=== PATIENT | female | born 1965 | race Caucasian/White ===

== ENCOUNTER 2017-02-21 10:47 | Emergency (ER) | payer BC ==
--- NOTE | 2017-02-21 11:00 | EDM.PDOC ---
ED HPI GENERAL MEDICAL PROBLEM - General Chief Complaint: Neuro Symptoms/Deficits Stated Complaint: AMBULANCE Time Seen by Provider: 02/21/17 10:58 - History of Present Illness INITIAL COMMENTS - FREE TEXT/NARRATIVE: HISTORY AND PHYSICAL: History of present illness: Patient is 51-year-old female history of fibromyalgia presents with concern of right-sided paresthesia and weakness this occurred prior to arrival at approximately 10:30 AM while she was showering she denies chest pain shortness of breath headache fever chills trauma or any other complaints Review of systems: As per history of present illness and below otherwise all systems reviewed and negative. Past medical history: As per history of present illness and as reviewed below otherwise noncontributory. Surgical history: As per history of present illness and as reviewed below otherwise noncontributory. Social history: No reported history of drug or alcohol abuse. Family history: As per history of present illness and as reviewed below otherwise noncontributory. Physical exam: HEENT: Atraumatic, normocephalic, pupils reactive, negative for conjunctival pallor or scleral icterus, mucous membranes moist, throat clear, neck supple, nontender, trachea midline. Lungs: Clear to auscultation, breath sounds equal bilaterally, chest nontender. Heart: S1S2, regular, negative for clicks, rubs, or JVD. Abdomen: Soft, nondistended, nontender. Negative for masses or hepatosplenomegaly. Negative for costovertebral tenderness. Pelvis: Stable nontender. Genitourinary: Deferred. Rectal: Deferred. Extremities: Atraumatic, negative for cords or calf pain. Neurovascular unremarkable. Neuro: Awake, alert, oriented. Cranial nerves II through XII unremarkable. Cerebellum unremarkable. Motor and sensory limited with equivocal mild weakness right sided motor 4 out of 5 no discernible paresthesia Diagnostics: Stroke protocol Therapeutics: Stroke protocol Impression: #1 right-sided paresthesia/paresis #2 history of fibromyalgia Definitive disposition and diagnosis as appropriate pending reevaluation and review of above. - Related Data Allergies Allergy/AdvReac Type Severity Reaction Status Date / Time No Known Allergies Allergy Verified 08/08/14 12:19 Home Meds: Home Meds L.acidoph,Paracasei, B.lactis [Probiotic] 1 each PO DAILY 08/08/14 [History] Wheat Dextrin [Benefiber] 1 tsp PO DAILY 08/08/14 [History] atorvaSTATin Calcium [Atorvastatin Calcium] 1 tab PO DAILY 08/08/14 [History] Social & Family History - Tobacco Use Smoking Status *Q: Never Smoker - Alcohol Use Days Per Week of Alcohol Use: 1 Number of Drinks Per Day: 0 Total Drinks Per Week: 0 - Recreational Drug Use Recreational Drug Use: No Drug Use in Last 12 Months: No ED ROS GENERAL - Review of Systems Review Of Systems: ROS reveals no pertinent complaints other than HPI. ED EXAM, GENERAL - Physical Exam Exam: See Below (See dictation) Course - Orders/Labs/Meds Orders: Active Orders 24 hr Category Date Time Status Cardiac Monitoring [RC] . DIRECTED Care 02/21/17 11:00 Active EKG Documentation Completion [RC] STAT Care 02/21/17 11:00 Active Oxygen Therapy, ED [RC] ASDIRECTED Care 02/21/17 11:00 Active Pulse Oximetry [RC] ASDIRECTED Care 02/21/17 11:00 Active Chest 1V Frontal [CR] Stat Exams 02/21/17 11:01 Ordered Head wo Cont [CT] Stat Exams 02/21/17 11:01 Taken COMPREHENSIVE METABOLIC PN,CMP [CHEM] Stat Lab 02/21/17 11:13 Received DRUG SCREEN, URINE [URCHEM] Stat Lab 02/21/17 11:01 Uncollected ETHANOL BLOOD MEDICAL [CHEM] Stat Lab 02/21/17 11:13 Received HCG QUALITATIVE,SERUM [CHEM] Stat Lab 02/21/17 11:13 Received INR,PT,PROTHROMBIN TIME [COAG] Stat Lab 02/21/17 11:13 Received PROLACTIN [CHEM] Stat Lab 02/21/17 11:13 Received TROPONIN I [CHEM] Stat Lab 02/21/17 11:13 Received UA W/MICROSCOPIC [URIN] Stat Lab 02/21/17 11:01 Uncollected Sodium Chloride 0.9% [Normal Saline] 1,000 ml Med 02/21/17 11:15 Active IV STAT Sodium Chloride 0.9% [Saline Flush] Med 02/21/17 11:01 Active 10 ml FLUSH ASDIRECTED PRN Sodium Chloride 0.9% [Saline Flush] Med 02/21/17 11:01 Active 2.5 ml FLUSH ASDIRECTED PRN Saline Lock Insert [OM.PC] Stat Oth 02/21/17 11:00 Ordered Medication Orders Sodium Chloride (Normal Saline) 1,000 mls @ 125 mls/hr IV STAT DANIS Last Admin: 02/21/17 11:16 Dose: 125 mls/hr Sodium Chloride (Saline Flush) 10 ml FLUSH ASDIRECTED PRN PRN Reason: Keep Vein Open Sodium Chloride (Saline Flush) 2.5 ml FLUSH ASDIRECTED PRN PRN Reason: Keep Vein Open Labs: Laboratory Tests 02/21/17 02/21/17 Range/Units 11:13 11:13 WBC 12.07 H (4.0-11.0) K/uL RBC 4.66 (4.30-5.90) M/uL Hgb 14.2 (12.0-16.0) g/dL Hct 41.6 (36.0-46.0) % MCV 89.3 (80.0-98.0) fL MCH 30.5 (27.0-32.0) pg MCHC 34.1 (31.0-37.0) g/dL RDW Std Deviation 43.7 (28.0-62.0) fl RDW Coeff of Ramon 14 (11.0-15.0) % Plt Count 244 (150-400) K/uL MPV 9.80 (7.40-12.00) fL Neut % (Auto) 66.4 (48.0-80.0) % Lymph % (Auto) 24.0 (16.0-40.0) % [place] % (Auto) 6.7 (0.0-15.0) % Eos % (Auto) 2.7 (0.0-7.0) % Baso % (Auto) 0.2 (0.0-1.5) % Neut # (Auto) 8.0 H (1.4-5.7) K/uL Lymph # (Auto) 2.9 H (0.6-2.4) K/uL [place] # (Auto) 0.8 (0.0-0.8) K/uL Eos # (Auto) 0.3 (0.0-0.7) K/uL Baso # (Auto) 0.0 (0.0-0.1) K/uL Nucleated RBC % 0.0 /100WBC Nucleated RBCs # 0 K/uL Lactate 3.0 H (0.20-2.00) mmol/L Meds: Medications Generic Name Dose Route Start Last Admin Trade Name Vince PRN Reason Stop Dose Admin Sodium Chloride 1,000 mls @ 125 mls/hr 02/21/17 11:15 02/21/17 11:16 Normal Saline IV 125 mls/hr STAT DANIS Administration Sodium Chloride 10 ml 02/21/17 11:01 Saline Flush FLUSH ASDIRECTED PRN Keep Vein Open Sodium Chloride 2.5 ml 02/21/17 11:01 Saline Flush FLUSH ASDIRECTED PRN Keep Vein Open Departure - Departure Time of Disposition: 11:23 Disposition: DC/Tfer to [facility] 02 Condition: Good Clinical Impression: Paresis, History of fibromyalgia - Discharge Information Referrals: PCP,Unknown [Primary Care Provider] - Forms: ED Department Discharge - My Orders Last 24 Hours: My Active Orders 02/21/17 11:00 Cardiac Monitoring [RC] . DIRECTED EKG Documentation Completion [RC] STAT Oxygen Therapy, ED [RC] ASDIRECTED Pulse Oximetry [RC] ASDIRECTED Saline Lock Insert [OM.PC] Stat 02/21/17 11:01 Chest 1V Frontal [CR] Stat Head wo Cont [CT] Stat DRUG SCREEN, URINE [URCHEM] Stat UA W/MICROSCOPIC [URIN] Stat Sodium Chloride 0.9% [Saline Flush] 10 ml FLUSH ASDIRECTED PRN Sodium Chloride 0.9% [Saline Flush] 2.5 ml FLUSH ASDIRECTED PRN 02/21/17 11:13 COMPREHENSIVE METABOLIC PN,CMP [CHEM] Stat ETHANOL BLOOD MEDICAL [CHEM] Stat HCG QUALITATIVE,SERUM [CHEM] Stat INR,PT,PROTHROMBIN TIME [COAG] Stat PROLACTIN [CHEM] Stat TROPONIN I [CHEM] Stat 02/21/17 11:15 Sodium Chloride 0.9% [Normal Saline] 1,000 ml IV STAT - Assessment/Plan Last 24 Hours: My Active Orders 02/21/17 11:00 Cardiac Monitoring [RC] . DIRECTED EKG Documentation Completion [RC] STAT Oxygen Therapy, ED [RC] ASDIRECTED Pulse Oximetry [RC] ASDIRECTED Saline Lock Insert [OM.PC] Stat 02/21/17 11:01 Chest 1V Frontal [CR] Stat Head wo Cont [CT] Stat DRUG SCREEN, URINE [URCHEM] Stat UA W/MICROSCOPIC [URIN] Stat Sodium Chloride 0.9% [Saline Flush] 10 ml FLUSH ASDIRECTED PRN Sodium Chloride 0.9% [Saline Flush] 2.5 ml FLUSH ASDIRECTED PRN 02/21/17 11:13 COMPREHENSIVE METABOLIC PN,CMP [CHEM] Stat ETHANOL BLOOD MEDICAL [CHEM] Stat HCG QUALITATIVE,SERUM [CHEM] Stat INR,PT,PROTHROMBIN TIME [COAG] Stat PROLACTIN [CHEM] Stat TROPONIN I [CHEM] Stat 02/21/17 11:15 Sodium Chloride 0.9% [Normal Saline] 1,000 ml IV STAT
[2017-02-21] MEDS ORDERED: Sodium Chloride 0.9% 2.5 ML Syringe FLUSH PRN (11:01)
[2017-02-21] MEDS ORDERED: Sodium Chloride 0.9% 10 ML Syringe FLUSH PRN (11:01)
[2017-02-21] MEDS ORDERED: Sodium Chloride 0.9% 1,000 ML IV SCH (11:15)
[2017-02-21 11:41] LABS: CHLORIDE,CL 107 mmol/L (98-110); SODIUM,NA 140 mmol/L (136-146)
[2017-02-21 11:58] VITALS: BP 142/84
--- NOTE | 2017-02-22 07:48 | CT ---
EXAM DATE: 02/21/17 PATIENT'S AGE: 51 Patient: TA VIRAMONTES Facility: [facility] [place], [place], [place] : 1965 Study: CT Head STROKE PROTOCOL -02/21/2017 10:58:33 AM Ordering Physician: ASHA Final Report: INDICATION: Weakness. Stroke protocol. Technique: CT head without IV contrast. Findings: No acute intracranial hemorrhage, edema, or mass effect. Minimal cerebral atrophy. Remainder negative. Report called to referring physician at 11 a.m. on 02/21/2017. Impression: No acute intracranial disease. Please note that all CT scans at this facility use dose modulation, iterative reconstruction, and/or weight-based dosing when appropriate to reduce radiation dose to as low as reasonably achievable. Dictated by Josh Jones MD @ Feb 21 2017 11:00AM (Electronic Signature) Report Signed by Proxy. [facility]ENTER[facility]
--- NOTE | 2017-02-22 07:49 | CR ---
EXAM DATE: 02/21/17 PATIENT'S AGE: 51 Patient: TA VIRAMONTES Facility: [place], [place] Site . Site : 1965 Study: XRay Chest [id number]/25/2017 11:25:03 AM Ordering Physician: Nish Caban Final Report: INDICATION: Pain. Short of breath. Technique: Portable chest. Findings: Heart and mediastinum are normal in size. Pulmonary vessels are normal. Lungs are clear. No pleural fluid. No acute bony abnormality. Impression: No acute chest disease. Dictated by Jeri Coburn MD @ Feb 21 2017 11:26AM (Electronic Signature) Report Signed by Proxy. [facility]
== END 2017-02-21 12:24 ==
LOC: MW.ED 10:47
DX: R20.2 Paresthesia of skin (principal); Z79.899 Other long term (current) drug therapy; Z87.39 Personal history of other diseases of the musculoskeletal system and connective tissue
CPT/HCPCS: 36415; 70450; 71010; 80053; 80305; 81001; 83605; 84146; 84484; 84703; 85025; 85610; 93005; 96360; 99285; G0480; J7040